=== PATIENT | male | born 1965 | race African-American/Black ===

== ENCOUNTER 2016-10-23 23:55 | Emergency (ER) | payer MEDICAID ==
[~2016-10-23] VITALS: Ht 180.3 cm; Wt 87.0 kg
[~2016-10-23 23:55] MED LIST: AMLO10TA80 PO; CALC667C4 PO; FOLI-43 PO; FURO80TA3 PO; GABA-529 PO; METO50TA5 PO; OMEP20CA10 PO; TERA2CAP53 PO
[2016-10-24 00:57] LABS: BASOPHILS % 0.5 % (0.0-2.0); EOSINOPHILS % 0.8 % (0.0-5.0); HEMATOCRIT. 35.5 % (42.0-52.0); HEMOGLOBIN. 12.4 g/dL (14.0-18.0); MEAN CORPUSCULAR HEMOGLOBIN 31.6 pg (28.0-32.0); MEAN CORPUSCULAR VOLUME 90.4 fL (80.0-94.0); MEAN PLATELET VOLUME 8.9 fl (7.4-10.4); MONOCYTES % 4.2 % (2.0-8.0); NEUTROPHILS % 83.5 % (40.0-76.0); PLATELET 153 x1000/uL (130-400); RED BLOOD CELL COUNT 3.93 mill/uL (4.7-6.1); RED CELL DISTRIBUTION WIDTH 13.4 % (11.6-14.6)
[2016-10-24 04:15] VITALS: BP 158/92
== END 2016-10-24 04:31 | disposition home or self-care (01) ==
LOC: ER 10-24 00:48
DX: E11.649 Type 2 diabetes mellitus with hypoglycemia without coma (principal); T38.3X5A Adverse effect of insulin and oral hypoglycemic [antidiabetic] drugs, initial encounter; I10 Essential (primary) hypertension; N28.9 Disorder of kidney and ureter, unspecified; Y92.9 Unspecified place or not applicable
CPT/HCPCS: 36415; 80048; 82962; 85025; 99284; Z7610

== ENCOUNTER 2017-08-23 13:46 | Inpatient (IN) | payer MEDICAID ==
[~2017-08-23] VITALS: Ht 177.8 cm; Wt 86.7 kg
[2017-08-23] VITALS (24 sets, daily range): BP systolic 120–177; BP diastolic 77–102
[~2017-08-23 13:46] MED LIST changes: +METO-539 PO; -METO50TA5 PO; +TERA2CAP4 PO; -TERA2CAP53 PO
[2017-08-23] MEDS ORDERED: SUCCINYLCHOLINE CHLORIDE 200MG/10ML VIAL IV ONE ×2 (14:02→16:00)
[2017-08-23] MEDS ORDERED: ETOMIDATE 2MG/ML 10ML VIAL IV ONE ×2 (14:02→16:00)
[2017-08-23] MEDS ORDERED: ACETAMINOPHEN 650MG SUPP PR STA (14:04)
[2017-08-23] MEDS ORDERED: SODIUM CHLORIDE 0.9% 1,000 ML IV ONE ×2 (14:04→15:31)
[2017-08-23] MEDS ORDERED: PIPERACILLIN/TAZ 3.375G PREMIX 50 ML IV ONE (14:15)
[2017-08-23] MEDS ORDERED: VANCOMYCIN 1 G PREMIX 200 ML IV ONE (14:15)
[2017-08-23 14:33] LABS: BG BASE EXCESS -2.9 mmol/L (-2.0-2.0); BG CARBOXYHEMOGLOBIN 0.9 % (0.5-1.5); BG DEOXYHEMOGLOBIN 4.6 % (0.0-5.0); BG FRACTION INSPIRED OXYGEN 21; BG HCO3 ACT 19.1 mmol/L (22.0-26.0); BG METHEMOGLOBIN 0.3 % (0.0-1.5); BG OXYGEN SATURATION 95.3 % (92.0-98.5); BG OXYHEMOGLOBIN 94.2 % (94.0-97.0); BG PCO2 25.4 mmHg (35.0-45.0); BG PH 7.494 (7.350-7.450); BG SAMPLE SITE RIGHT BRACHIAL; BG TOTAL HEMOGLOBIN 11.1 g/dL (12.0-18.0); BG VENT MODE ROOM AIR
[2017-08-23] MEDS ORDERED: LORAZEPAM 2MG/ML CPJ IM ONE (15:00)
[2017-08-23] MEDS ORDERED: LORAZEPAM 2MG/ML CPJ IV ONE (15:00)
[2017-08-23 15:20] LABS: CHLORIDE 85 mEq/L (98-107)
[2017-08-23 15:24] LABS: ETHANOL BLOOD < 10 mg/dL
[2017-08-23 15:25] LABS: D-DIMER 1.19 mg/L FEU (<0.50); PHOSPHORUS 2.8 mg/dL (2.5-4.9); PROTHROMBIN TIME 10.3 sec (9.4-11.6)
[2017-08-23 15:26] LABS: HEMATOCRIT. 32.5 % (42.0-52.0); HEMOGLOBIN. 11.1 g/dL (14.0-18.0); MEAN CORPUSCULAR HEMOGLOBIN 32.1 pg (28.0-32.0); MEAN CORPUSCULAR VOLUME 94.2 fL (80.0-94.0); PLATELET 204 x1000/uL (130-400); RED BLOOD CELL COUNT 3.45 mill/uL (4.7-6.1); RED CELL DISTRIBUTION WIDTH 13.5 % (11.6-14.6)
[2017-08-23 15:29] LABS: BETA HYDROXYBUTYRATE 1.7 mMol/L (0.0-0.3)
[2017-08-23] MEDS: INSULIN REGULAR (DRIP) 100 UNITS in SODIUM CHLORIDE 0.9% 99 ML IV SCH ×2 (15:45→18:26)
[2017-08-23] MEDS ORDERED: PROPOFOL 10MG/ML 100ML 100 ML IV ONE (16:00)
[2017-08-23 16:02] LABS: PLATELET ESTIMATE NORMAL
[2017-08-23] MEDS ORDERED: IPRATROPIUM/ALBUTEROL 0.5-3(2.5)MG/3ML NEB INH PRN (17:15)
[2017-08-23] MEDS ORDERED: PIPERACILLIN/TAZ 3.375G PREMIX 50 ML IV SCH (17:15)
[2017-08-23] MEDS ORDERED: ACETAMINOPHEN 650MG SUPP PR PRN (17:15)
[2017-08-23] MEDS ORDERED: INSULIN REGULAR (DRIP) 100 UNITS in SODIUM CHLORIDE 0.9% 100 ML IV SCH ×2 (17:15→20:00)
[2017-08-23] MEDS ORDERED: ONDANSETRON HCL 4MG/2ML VIAL IV PRN (17:15)
[2017-08-23 17:41] LABS: AMMONIA 41 uMol/L (<32)
[2017-08-23 17:45] LABS: CLARITY URINE CLEAR (CLEAR); COLOR URINE YELLOW (YELLOW); KETONES URINE TRACE (NEGATIVE); LEUKOCYTE ESTERASE URINE NEGATIVE (NEGATIVE); NITRITE URINE NEGATIVE (NEGATIVE); OCCULT BLOOD URINE 1+ (NEGATIVE); PH URINE >=9.0 (4.5-8.0); PROTEIN URINE 4+ (NEGATIVE); SPECIFIC GRAVITY URINE 1.017 (1.005-1.030); UROBILINOGEN URINE 0.2 E.U./dL (0.2-1.0)
[2017-08-23 18:01] LABS: *AMPHETAMINES SCREEN URINE NEGATIVE (NEGATIVE); *BARBITURATES SCREEN URINE NEGATIVE (NEGATIVE); *BENZODIAZEPINES SCREEN URINE NEGATIVE (NEGATIVE); *COCAINE SCREEN URINE NEGATIVE (NEGATIVE)
[2017-08-23 18:02] LABS: CANNABINOID URINE SCREEN NEGATIVE (NEGATIVE); METHADONE URINE SCREEN NEGATIVE (NEGATIVE); OPIATES URINE SCREEN NEGATIVE (NEGATIVE); PHENCYCLIDINE URINE SCREEN NEGATIVE (NEGATIVE)
[2017-08-23] MEDS ORDERED: DEXTROSE 50% WATER 50ML SYRINGE IV PRN ×2 (18:30)
[2017-08-23] MEDS: BLOOD SUGAR DIAGNOSTIC STRIP TEST SCH ×5 (18:33→22:48)
[2017-08-23] MEDS: SODIUM CHLORIDE 0.9% 1,000 ML IV SCH (18:34)
[2017-08-23 18:47] LABS: BG BASE EXCESS -1.4 mmol/L (-2.0-2.0); BG CARBOXYHEMOGLOBIN 0.2 % (0.5-1.5); BG FRACTION INSPIRED OXYGEN 100; BG HCO3 ACT 23.8 mmol/L (22.0-26.0); BG METHEMOGLOBIN 0.5 % (0.0-1.5); BG OXYHEMOGLOBIN 98.3 % (94.0-97.0); BG PCO2 42.1 mmHg (35.0-45.0); BG PH 7.371 (7.350-7.450); BG PO2 177.3 mmHg (75.0-100.0); BG SAMPLE SITE RIGHT RADIAL; BG TIDAL VOLUME(mL) 500 mL; BG VENT MODE VENT - A/C; BG VENT RATE 12 set
[2017-08-23] MEDS ORDERED: VANCOMYCIN 1 G PREMIX 200 ML IV NR (20:00)
[2017-08-23] MEDS: PROPOFOL 10MG/ML 100ML 100 ML IV PRN ×2 (20:26→22:48)
[2017-08-23] MEDS: PIPERACILLIN/TAZ 2.25G PREMIX 50 ML IV SCH (22:54)
[2017-08-24] VITALS (63 sets, daily range): BP systolic 110–178; BP diastolic 72–98
[2017-08-24 00:01] LABS: CREATINE KINASE MB FRACTION 3.8 ng/mL (0.5-3.6)
[2017-08-24] MEDS: BLOOD SUGAR DIAGNOSTIC STRIP TEST SCH ×12 (00:04→20:53)
[2017-08-24 05:52] LABS: BASOPHILS % 0.4 % (0.0-2.0); EOSINOPHILS % 0.1 % (0.0-5.0); HEMATOCRIT. 26.9 % (42.0-52.0); HEMOGLOBIN. 9.5 g/dL (14.0-18.0); LYMPHOCYTES % 11.6 % (20.0-50.0); MEAN CORPUSCULAR HEMOGLOBIN 31.9 pg (28.0-32.0); MEAN CORPUSCULAR VOLUME 89.9 fL (80.0-94.0); MEAN PLATELET VOLUME 8.9 fl (7.4-10.4); MONOCYTES % 6.9 % (2.0-8.0); PLATELET 206 x1000/uL (130-400); RED BLOOD CELL COUNT 2.99 mill/uL (4.7-6.1); RED CELL DISTRIBUTION WIDTH 13.2 % (11.6-14.6)
[2017-08-24 06:00] LABS: CHLORIDE 94 mEq/L (98-107)
[2017-08-24] MEDS: PIPERACILLIN/TAZ 2.25G PREMIX 50 ML IV SCH ×2 (06:00→17:12)
[2017-08-24] MEDS: PROPOFOL 10MG/ML 100ML 100 ML IV PRN ×2 (06:01→10:17)
[2017-08-24 06:09] LABS: HDL CHOLESTEROL 34 mg/dL (40-59)
[2017-08-24 06:11] LABS: LDL CHOLESTEROL 38 mg/dL (5-100)
[2017-08-24 06:12] LABS: CREATINE KINASE 283 IU/L (39-308)
[2017-08-24 06:17] LABS: CREATINE KINASE MB FRACTION 3.2 ng/mL (0.5-3.6)
[2017-08-24] MEDS ORDERED: DEXTROSE 50% WATER 50ML SYRINGE IV PRN (08:45)
[2017-08-24] MEDS ORDERED: IPRATROPIUM/ALBUTEROL 0.5-3(2.5)MG/3ML NEB HHN PRN (08:45)
[2017-08-24] MEDS ORDERED: BLOOD SUGAR DIAGNOSTIC STRIP TEST SCH (09:00)
[2017-08-24] MEDS ORDERED: PANTOPRAZOLE SODIUM 40 MG/VIAL IV NR (09:30)
[2017-08-24] MEDS: ENOXAPARIN 30MG/0.3ML SYR SUBCUT SCH (10:16)
[2017-08-24] MEDS: INSULIN LISPRO 100 UNITS/ML SUBCUT SCH ×3 (11:20→20:56)
[2017-08-24 12:44] LABS: BG BASE EXCESS -1.3 mmol/L (-2.0-2.0); BG CARBOXYHEMOGLOBIN 0.3 % (0.5-1.5); BG DEOXYHEMOGLOBIN 1.2 % (0.0-5.0); BG FRACTION INSPIRED OXYGEN 50; BG HCO3 ACT 22.5 mmol/L (22.0-26.0); BG METHEMOGLOBIN 0.4 % (0.0-1.5); BG OXYGEN SATURATION 98.8 % (92.0-98.5); BG OXYHEMOGLOBIN 98.1 % (94.0-97.0); BG PCO2 34.5 mmHg (35.0-45.0); BG PH 7.433 (7.350-7.450); BG PO2 178.5 mmHg (75.0-100.0); BG PRESSURE SUPPORT 8; BG SAMPLE SITE RIGHT BRACHIAL; BG VENT MODE VENT - CPAP
[2017-08-24] MEDS: IPRATROPIUM/ALBUTEROL 0.5-3(2.5)MG/3ML NEB HHN SCH ×2 (13:20→20:22)
[2017-08-24] MEDS: SODIUM CHLORIDE 0.9% 1,000 ML IV SCH (14:24)
[2017-08-24] MEDS: AMLODIPINE 10MG TABLET PO SCH (14:24)
[2017-08-24 16:24] LABS: AMMONIA 18 uMol/L (<32)
[2017-08-24 16:30] LABS: T4 FREE 1.43 ng/dL (0.76-1.46)
[2017-08-24 16:42] LABS: FOLIC ACID (FOLATE) SERUM > 20.00 ng/mL (>5.38)
[2017-08-24 16:50] LABS: VITAMIN B12 SERUM 1121 pg/mL (211-911)
[2017-08-24] MEDS: CALCIUM ACETATE 667MG CAPSULE PO SCH (17:11)
[2017-08-24] MEDS: GABAPENTIN 100MG CAPSULE PO SCH (20:29)
[2017-08-24] MEDS: DOXAZOSIN MESYLATE 2MG TABLET PO SCH (20:29)
[2017-08-25] VITALS (44 sets, daily range): BP systolic 113–165; BP diastolic 63–94
[2017-08-25] MEDS: PIPERACILLIN/TAZ 2.25G PREMIX 50 ML IV SCH ×4 (00:20→23:07)
[2017-08-25] MEDS: IPRATROPIUM/ALBUTEROL 0.5-3(2.5)MG/3ML NEB HHN SCH ×4 (01:40→21:06)
[2017-08-25] MEDS: BLOOD SUGAR DIAGNOSTIC STRIP TEST SCH ×3 (06:01→21:29)
[2017-08-25] MEDS: CALCIUM ACETATE 667MG CAPSULE PO SCH ×3 (06:02→18:15)
[2017-08-25] MEDS: INSULIN LISPRO 100 UNITS/ML SUBCUT SCH ×4 (06:06→21:29)
[2017-08-25 06:14] LABS: BASOPHILS % 0.6 % (0.0-2.0); EOSINOPHILS % 1.3 % (0.0-5.0); HEMATOCRIT. 27.2 % (42.0-52.0); HEMOGLOBIN. 9.4 g/dL (14.0-18.0); LYMPHOCYTES % 15.9 % (20.0-50.0); MEAN CORPUSCULAR HEMOGLOBIN 31.8 pg (28.0-32.0); MEAN CORPUSCULAR VOLUME 91.9 fL (80.0-94.0); MEAN PLATELET VOLUME 8.7 fl (7.4-10.4); MONOCYTES % 6.5 % (2.0-8.0); NEUTROPHILS % 75.7 % (40.0-76.0); PLATELET 183 x1000/uL (130-400); RED BLOOD CELL COUNT 2.97 mill/uL (4.7-6.1); RED CELL DISTRIBUTION WIDTH 13.6 % (11.6-14.6)
[2017-08-25 06:26] LABS: PHOSPHORUS 5.9 mg/dL (2.5-4.9)
[2017-08-25] MEDS: AMLODIPINE 10MG TABLET PO SCH (09:08)
[2017-08-25] MEDS: PANTOPRAZOLE SODIUM 40 MG/VIAL IV SCH (09:08)
[2017-08-25] MEDS: METOPROLOL TARTRATE 50MG TABLET PO SCH (09:08)
[2017-08-25] MEDS: FUROSEMIDE 80MG TABLET PO SCH (09:08)
[2017-08-25] MEDS: FOLIC ACID 1MG TABLET PO SCH (09:09)
[2017-08-25] MEDS: ENOXAPARIN 30MG/0.3ML SYR SUBCUT SCH (09:25)
[2017-08-25] MEDS ORDERED: DEXTROSE 50% WATER 50ML SYRINGE IV PRN ×2 (11:45→12:15)
[2017-08-25] MEDS ORDERED: BLOOD SUGAR DIAGNOSTIC STRIP TEST SCH (12:00)
[2017-08-25] MEDS ORDERED: INSULIN LISPRO 100 UNITS/ML SUBCUT SCH (12:00)
[2017-08-25] MEDS: SODIUM CHLORIDE 0.9% 1,000 ML IV SCH (12:45)
[2017-08-25] MEDS ORDERED: INSULIN LISPRO 100 UNITS/ML SUBCUT NR (12:45)
[2017-08-25 12:53] LABS: CREATINE KINASE MB FRACTION 2.1 ng/mL (0.5-3.6)
[2017-08-25] MEDS ORDERED: INSULIN GLARGINE UD 100 UNITS/ML SYR SUBCUT SCH ×2 (15:00→22:00)
[2017-08-25] MEDS: ATORVASTATIN CALCIUM 20MG TABLET PO SCH (21:01)
[2017-08-25] MEDS: DOXAZOSIN MESYLATE 2MG TABLET PO SCH (21:01)
[2017-08-25] MEDS: GABAPENTIN 100MG CAPSULE PO SCH (21:01)
[2017-08-26] VITALS (35 sets, daily range): BP systolic 135–178; BP diastolic 63–91
[2017-08-26] MEDS: IPRATROPIUM/ALBUTEROL 0.5-3(2.5)MG/3ML NEB HHN SCH ×3 (01:05→15:56)
[2017-08-26 06:01] LABS: BASOPHILS % 0.7 % (0.0-2.0); EOSINOPHILS % 3.8 % (0.0-5.0); HEMATOCRIT. 25.9 % (42.0-52.0); HEMOGLOBIN. 9.1 g/dL (14.0-18.0); LYMPHOCYTES % 22.8 % (20.0-50.0); MEAN CORPUSCULAR HEMOGLOBIN 32.2 pg (28.0-32.0); MEAN CORPUSCULAR VOLUME 91.8 fL (80.0-94.0); MEAN PLATELET VOLUME 8.6 fl (7.4-10.4); MONOCYTES % 9.1 % (2.0-8.0); NEUTROPHILS % 63.6 % (40.0-76.0); PLATELET 185 x1000/uL (130-400); RED BLOOD CELL COUNT 2.82 mill/uL (4.7-6.1); RED CELL DISTRIBUTION WIDTH 13.8 % (11.6-14.6)
[2017-08-26] MEDS: BLOOD SUGAR DIAGNOSTIC STRIP TEST SCH ×4 (06:08→21:28)
[2017-08-26 06:17] LABS: PHOSPHORUS 6.4 mg/dL (2.5-4.9)
[2017-08-26] MEDS: CALCIUM ACETATE 667MG CAPSULE PO SCH ×3 (06:19→18:53)
[2017-08-26] MEDS: PIPERACILLIN/TAZ 2.25G PREMIX 50 ML IV SCH (06:19)
[2017-08-26] MEDS: INSULIN LISPRO 100 UNITS/ML SUBCUT SCH ×7 (06:20→21:23)
[2017-08-26] MEDS: FOLIC ACID 1MG TABLET PO SCH (08:07)
[2017-08-26] MEDS: AMLODIPINE 10MG TABLET PO SCH (08:07)
[2017-08-26] MEDS: PANTOPRAZOLE SODIUM 40 MG/VIAL IV SCH (08:07)
[2017-08-26] MEDS: FUROSEMIDE 80MG TABLET PO SCH (08:07)
[2017-08-26] MEDS: METOPROLOL TARTRATE 50MG TABLET PO SCH (08:08)
[2017-08-26] MEDS: ENOXAPARIN 30MG/0.3ML SYR SUBCUT SCH (08:11)
[2017-08-26] MEDS ORDERED: INSULIN GLARGINE UD 100 UNITS/ML SYR SUBCUT SCH ×2 (10:00→22:00)
[2017-08-26] MEDS ORDERED: LEVOFLOXACIN 250MG TABLET PO SCH (11:00)
[2017-08-26] MEDS ORDERED: EPOETIN ALFA 4000UNITS/ML VIAL SUBCUT SCH (21:00)
[2017-08-26] MEDS: ATORVASTATIN CALCIUM 20MG TABLET PO SCH (21:17)
[2017-08-26] MEDS: DOXAZOSIN MESYLATE 2MG TABLET PO SCH (21:18)
[2017-08-26] MEDS: GABAPENTIN 100MG CAPSULE PO SCH (21:20)
[2017-08-27] VITALS (10 sets, daily range): BP systolic 128–159; BP diastolic 62–82
[2017-08-27] MEDS: IPRATROPIUM/ALBUTEROL 0.5-3(2.5)MG/3ML NEB HHN SCH ×4 (01:46→21:08)
[2017-08-27] MEDS: BLOOD SUGAR DIAGNOSTIC STRIP TEST SCH ×3 (06:02→18:01)
[2017-08-27] MEDS: INSULIN LISPRO 100 UNITS/ML SUBCUT SCH ×6 (06:02→18:15)
[2017-08-27] MEDS ORDERED: INSULIN LISPRO 100 UNITS/ML SUBCUT SCH (06:30)
[2017-08-27] MEDS ORDERED: OMEPRAZOLE 20MG CAPSULE EXTENDED RELEASE PO SCH (06:30)
[2017-08-27 07:36] LABS: BASOPHILS % 0.6 % (0.0-2.0); EOSINOPHILS % 4.5 % (0.0-5.0); HEMATOCRIT. 24.4 % (42.0-52.0); HEMOGLOBIN. 8.8 g/dL (14.0-18.0); LYMPHOCYTES % 24.9 % (20.0-50.0); MEAN CORPUSCULAR HEMOGLOBIN 32.9 pg (28.0-32.0); MEAN CORPUSCULAR VOLUME 91.7 fL (80.0-94.0); MEAN PLATELET VOLUME 8.3 fl (7.4-10.4); MONOCYTES % 8.9 % (2.0-8.0); NEUTROPHILS % 61.1 % (40.0-76.0); PLATELET 153 x1000/uL (130-400); RED BLOOD CELL COUNT 2.66 mill/uL (4.7-6.1); RED CELL DISTRIBUTION WIDTH 13.3 % (11.6-14.6)
[2017-08-27] MEDS: CALCIUM ACETATE 667MG CAPSULE PO SCH ×3 (08:40→18:15)
[2017-08-27] MEDS: FOLIC ACID 1MG TABLET PO SCH (08:40)
[2017-08-27] MEDS: ENOXAPARIN 30MG/0.3ML SYR SUBCUT SCH (08:40)
[2017-08-27] MEDS: AMLODIPINE 10MG TABLET PO SCH (08:41)
[2017-08-27] MEDS: FUROSEMIDE 80MG TABLET PO SCH (08:41)
[2017-08-27] MEDS: METOPROLOL TARTRATE 50MG TABLET PO SCH (08:41)
[2017-08-27 08:55] LABS: PHOSPHORUS 4.1 mg/dL (2.5-4.9)
[2017-08-27] MEDS ORDERED: INSULIN GLARGINE UD 100 UNITS/ML SYR SUBCUT SCH (10:00)
[2017-08-27] MEDS ORDERED: INSLIS SUBCUT ×2 (15:42)
[2017-08-27] MEDS ORDERED: FURO80TA3 PO (15:42)
[2017-08-27] MEDS ORDERED: ATOR20TA PO (15:42)
[2017-08-27] MEDS ORDERED: LEVO250T2 PO (15:42)
[2017-08-27] MEDS ORDERED: LANTUSUD SUBCUT ×2 (15:42)
[2017-08-27] MEDS ORDERED: EPOE40007 SUBCUT (15:42)
[2017-08-28] MEDS ORDERED: INSULIN LISPRO 100 UNITS/ML SUBCUT SCH (07:40)
== END 2017-08-27 21:20 | disposition home or self-care (01) | DRG 720 ==
LOC: ER 13:46 → MICUNO 16:02 → EDBEDREQSVC 16:04 → ENRESERV 16:06 → EDBEDREQ 16:07 → EDBEDREQTM 16:07 → MICUSO 08-25 20:15 → 7WST 08-26 20:18
PROVIDERS: ADMIT Internal Medicine; ATTEND Internal Medicine
PROC: 5A1935Z Respiratory Ventilation, Less than 24 Consecutive Hours (ICD-10-PCS; principal; 2017-08-23)
PROC: 0BH17EZ Insertion of Endotracheal Airway into Trachea, Via Natural or Artificial Opening (ICD-10-PCS; 2017-08-23)
PROC: 5A1D70Z Performance of Urinary Filtration, Intermittent, Less than 6 Hours Per Day (ICD-10-PCS; 2017-08-24)
PROC: 5A09357 Assistance with Respiratory Ventilation, Less than 24 Consecutive Hours, Continuous Positive Airway Pressure (ICD-10-PCS; 2017-08-25)
PROC: 5A1D70Z Performance of Urinary Filtration, Intermittent, Less than 6 Hours Per Day (ICD-10-PCS; 2017-08-25)
PROC: 4A00X4Z Measurement of Central Nervous Electrical Activity, External Approach (ICD-10-PCS; 2017-08-25)
PROC: 5A09357 Assistance with Respiratory Ventilation, Less than 24 Consecutive Hours, Continuous Positive Airway Pressure (ICD-10-PCS; 2017-08-26)
DX: A41.9 Sepsis, unspecified organism (principal); J96.00 Acute respiratory failure, unspecified whether with hypoxia or hypercapnia; J69.0 Pneumonitis due to inhalation of food and vomit; E13.00 Other specified diabetes mellitus with hyperosmolarity without nonketotic hyperglycemic-hyperosmolar coma (NKHHC); G92 Toxic encephalopathy; E72.20 Disorder of urea cycle metabolism, unspecified; J84.9 Interstitial pulmonary disease, unspecified; N25.81 Secondary hyperparathyroidism of renal origin; N18.6 End stage renal disease; H70.93 Unspecified mastoiditis, bilateral; D64.9 Anemia, unspecified; D72.829 Elevated white blood cell count, unspecified; E10.22 Type 1 diabetes mellitus with diabetic chronic kidney disease; E10.319 Type 1 diabetes mellitus with unspecified diabetic retinopathy without macular edema; E10.65 Type 1 diabetes mellitus with hyperglycemia; E66.9 Obesity, unspecified; E78.5 Hyperlipidemia, unspecified; I13.11 Hypertensive heart and chronic kidney disease without heart failure, with stage 5 chronic kidney disease, or end stage renal disease; E83.39 Other disorders of phosphorus metabolism; Z96.41 Presence of insulin pump (external) (internal); E10.42 Type 1 diabetes mellitus with diabetic polyneuropathy; K42.9 Umbilical hernia without obstruction or gangrene; I27.20 Pulmonary hypertension, unspecified; E87.0 Hyperosmolality and hypernatremia; G47.33 Obstructive sleep apnea (adult) (pediatric); R26.9 Unspecified abnormalities of gait and mobility; I67.82 Cerebral ischemia; Z79.4 Long term (current) use of insulin; Z86.73 Personal history of transient ischemic attack (TIA), and cerebral infarction without residual deficits; Z99.2 Dependence on renal dialysis; Z87.81 Personal history of (healed) traumatic fracture; Z68.27 Body mass index [BMI] 27.0-27.9, adult; Z79.899 Other long term (current) drug therapy
CPT/HCPCS: 31500; 36415; 36556; 36600; 51702; 70450; 70551; 71045; 80048; 80053; 80061; 80202; 80305; 81003; 82010; 82140; 82375; 82550; 82553; 82607; 82746; 82805; 82962; 83036; 83540; 83550; 83605; 83735; 83880; 84100; 84439; 84443; 84481; 84484; 85025; 85379; 85610; 87040; 87086; 92610; 93005; 93306; 93970; 94002; 94003; 94640; 96372; 96374; 96375; 97116; 97162; 99285; C9113; G0482; J0330; J0885; J1650; J1815; J2060; J2543; J2704; J3370; J3490; J7030; J7040; J7050; J7620

== ENCOUNTER 2017-10-21 16:05 | Inpatient (IN) | payer MEDICAID ==
[~2017-10-21] VITALS: Ht 177.8 cm; Wt 83.5 kg
[2017-10-21] VITALS (9 sets, daily range): BP systolic 124–165; BP diastolic 42–86
[~2017-10-21 16:05] MED LIST changes: +ATOR20TA PO; +EPOE40007 SUBCUT; +ETOMIDATE 2MG/ML 10ML VIAL IV ONE; +INSLIS SUBCUT; +LANTUSUD SUBCUT; +LEVO250T2 PO; +SUCCINYLCHOLINE CHLORIDE 200MG/10ML VIAL IV ONE
[2017-10-21] MEDS ORDERED: SODIUM POLYSTYRENE SULFONATE 15 G/60 ML BOT NG ONE (17:00)
[2017-10-21] MEDS ORDERED: SODIUM BICARBONATE 8.4% 1 MEQ/ML 50ML SYR IV ONE (17:00)
[2017-10-21] MEDS ORDERED: INSULIN REGULAR (HUMULIN R) 300UNITS/3ML IV NR (17:14)
[2017-10-21 17:17] LABS: BASOPHILS % 1.1 % (0.0-2.0); HEMATOCRIT. 35.6 % (42.0-52.0); HEMOGLOBIN. 11.4 g/dL (14.0-18.0); LYMPHOCYTES % 18.3 % (20.0-50.0); MEAN CORPUSCULAR HEMOGLOBIN 31.3 pg (28.0-32.0); MEAN CORPUSCULAR VOLUME 98.1 fL (80.0-94.0); MEAN PLATELET VOLUME 9.2 fl (7.4-10.4); MONOCYTES % 4.7 % (2.0-8.0); NEUTROPHILS % 74.9 % (40.0-76.0); PLATELET 203 x1000/uL (130-400); RED BLOOD CELL COUNT 3.63 mill/uL (4.7-6.1); RED CELL DISTRIBUTION WIDTH 13.7 % (11.6-14.6)
[2017-10-21 17:23] LABS: CHLORIDE 82 mEq/L (98-107)
[2017-10-21 17:27] LABS: ETHANOL BLOOD < 10 mg/dL
[2017-10-21] MEDS ORDERED: CALCIUM CHLORIDE 1,000 MG in DEXT 5% WATER 90 ML IV NR (17:30)
[2017-10-21] MEDS ORDERED: INSULIN REGULAR (DRIP) 100 UNITS in SODIUM CHLORIDE 0.9% 99 ML IV NR ×2 (17:30→17:45)
[2017-10-21 18:01] LABS: BG BASE EXCESS -7.8 mmol/L (-2.0-2.0); BG CARBOXYHEMOGLOBIN 0.7 % (0.5-1.5); BG DEOXYHEMOGLOBIN 21.2 % (0.0-5.0); BG FRACTION INSPIRED OXYGEN 100; BG METHEMOGLOBIN 0.3 % (0.0-1.5); BG OXYGEN SATURATION 78.6 % (92.0-98.5); BG OXYHEMOGLOBIN 77.8 % (94.0-97.0); BG PCO2 65.8 mmHg (35.0-45.0); BG PH 7.142 (7.350-7.450); BG PO2 55.5 mmHg (75.0-100.0); BG SAMPLE SITE RIGHT BRACHIAL; BG TOTAL HEMOGLOBIN 12.7 g/dL (12.0-18.0); BG VENT MODE MASK - NRB
[2017-10-21] MEDS ORDERED: INSULIN REGULAR (HUMULIN R) UD 100 UNITS/ML SYR IV ONE (18:15)
[2017-10-21] MEDS ORDERED: MAGNESIUM/ALUMINUM HYDROXIDE/SIMETHICONE 30ML UDC PO PRN (19:00)
[2017-10-21] MEDS ORDERED: NITROGLYCERIN 50MG PREMIX 250 ML IV ONE (19:00)
[2017-10-21] MEDS ORDERED: IPRATROPIUM/ALBUTEROL 0.5-3(2.5)MG/3ML NEB INH PRN (19:00)
[2017-10-21] MEDS ORDERED: NITROGLYCERIN OINT 1GM/INCH UDPKT TD ONE (19:00)
[2017-10-21] MEDS ORDERED: CLONIDINE 0.1MG TABLET PO PRN (19:00)
[2017-10-21] MEDS ORDERED: ACETAMINOPHEN 325MG TABLET PO PRN (19:00)
[2017-10-21] MEDS ORDERED: ENALAPRIL 2.5MG/2ML VIAL 2ML IV ONE (19:00)
[2017-10-21] MEDS ORDERED: GUAIFENESIN 200MG/10ML SUGAR FREE UDC PO PRN (19:00)
[2017-10-21] MEDS ORDERED: NITROGLYCERIN 0.4MG TABLET SL SL PRN (19:00)
[2017-10-21 20:30] LABS: CLARITY URINE CLEAR (CLEAR); COLOR URINE YELLOW (YELLOW); KETONES URINE 1+ (NEGATIVE); LEUKOCYTE ESTERASE URINE NEGATIVE (NEGATIVE); NITRITE URINE NEGATIVE (NEGATIVE); OCCULT BLOOD URINE 1+ (NEGATIVE); PH URINE 8.5 (4.5-8.0); PROTEIN URINE 4+ (NEGATIVE); SPECIFIC GRAVITY URINE 1.018 (1.005-1.030); UROBILINOGEN URINE 0.2 E.U./dL (0.2-1.0)
[2017-10-21 20:32] LABS: *AMPHETAMINES SCREEN URINE NEGATIVE (NEGATIVE); *BARBITURATES SCREEN URINE NEGATIVE (NEGATIVE); *BENZODIAZEPINES SCREEN URINE NEGATIVE (NEGATIVE); *COCAINE SCREEN URINE NEGATIVE (NEGATIVE); METHADONE URINE SCREEN NEGATIVE (NEGATIVE)
[2017-10-21 20:33] LABS: CANNABINOID URINE SCREEN NEGATIVE (NEGATIVE); OPIATES URINE SCREEN NEGATIVE (NEGATIVE); PHENCYCLIDINE URINE SCREEN NEGATIVE (NEGATIVE)
[2017-10-21] MEDS ORDERED: TRAMADOL 50MG TABLET PO PRN (20:40)
[2017-10-21] MEDS ORDERED: SUCCINYLCHOLINE CHLORIDE 200MG/10ML VIAL IV ONE (20:45)
[2017-10-21] MEDS ORDERED: ETOMIDATE 2MG/ML 10ML VIAL IV ONE (20:45)
[2017-10-21] MEDS ORDERED: PROPOFOL 10MG/ML 100ML 100 ML IV PRN ×2 (20:45→22:55)
[2017-10-21] MEDS ORDERED: ZOLPIDEM TARTRATE 5MG TABLET PO PRN (21:00)
[2017-10-21] MEDS ORDERED: NA PHOS,M-B/NA PHOS,DI-BA ENEMA 118ML PR PRN (21:00)
[2017-10-21 22:06] LABS: BG BASE EXCESS -7.6 mmol/L (-2.0-2.0); BG CARBOXYHEMOGLOBIN 0.1 % (0.5-1.5); BG DEOXYHEMOGLOBIN 4.9 % (0.0-5.0); BG FRACTION INSPIRED OXYGEN 100; BG HCO3 ACT 18.3 mmol/L (22.0-26.0); BG METHEMOGLOBIN 0.3 % (0.0-1.5); BG OXYGEN SATURATION 95.1 % (92.0-98.5); BG OXYHEMOGLOBIN 94.7 % (94.0-97.0); BG PCO2 38.6 mmHg (35.0-45.0); BG PH 7.294 (7.350-7.450); BG PO2 84.1 mmHg (75.0-100.0); BG SAMPLE SITE RIGHT BRACHIAL; BG TIDAL VOLUME(mL) 600 mL; BG TOTAL HEMOGLOBIN 12.1 g/dL (12.0-18.0); BG VENT MODE VENT - A/C; BG VENT RATE 14 set
[2017-10-21] MEDS ORDERED: ONDANSETRON HCL 4MG/2ML VIAL IV PRN (22:30)
[2017-10-21] MEDS ORDERED: IPRATROPIUM/ALBUTEROL 0.5-3(2.5)MG/3ML NEB HHN PRN (22:45)
[2017-10-21] MEDS ORDERED: MIDAZOLAM HCL 100 MG in DEXT 5% WATER 80 ML IV PRN (23:15)
[2017-10-21 23:39] LABS: BETA HYDROXYBUTYRATE 0.2 mMol/L (0.0-0.3)
[2017-10-22] VITALS (86 sets, daily range): BP systolic 54–214; BP diastolic 20–128
[2017-10-22] MEDS: FENTANYL CITRATE/PF 500 MCG in SODIUM CHLORIDE 0.9% 40 ML IV PRN ×2 (00:22→22:50)
[2017-10-22] MEDS ORDERED: INSULIN REGULAR (DRIP) 100 UNITS in SODIUM CHLORIDE 0.9% 99 ML IV PRN (00:45)
[2017-10-22] MEDS ORDERED: VANCOMYCIN 1 G PREMIX 200 ML IV SCH (01:00)
[2017-10-22] MEDS: IPRATROPIUM/ALBUTEROL 0.5-3(2.5)MG/3ML NEB HHN SCH ×6 (01:28→20:47)
[2017-10-22] MEDS: PIPERACILLIN/TAZ 2.25G PREMIX 50 ML IV SCH ×3 (03:21→19:37)
[2017-10-22 05:44] LABS: HEMATOCRIT. 34.9 % (42.0-52.0); HEMOGLOBIN. 11.9 g/dL (14.0-18.0); MEAN CORPUSCULAR HEMOGLOBIN 30.8 pg (28.0-32.0); MEAN PLATELET VOLUME 8.3 fl (7.4-10.4); PLATELET 220 x1000/uL (130-400); RED BLOOD CELL COUNT 3.88 mill/uL (4.7-6.1); RED CELL DISTRIBUTION WIDTH 14.1 % (11.6-14.6)
[2017-10-22 05:50] LABS: CHLORIDE 96 mEq/L (98-107)
[2017-10-22 05:59] LABS: PHOSPHORUS 2.6 mg/dL (2.5-4.9)
[2017-10-22 07:04] LABS: PLATELET ESTIMATE NORMAL
[2017-10-22 07:39] LABS: BG BASE EXCESS 6.7 mmol/L (-2.0-2.0); BG CARBOXYHEMOGLOBIN 0.3 % (0.5-1.5); BG DEOXYHEMOGLOBIN 0.6 % (0.0-5.0); BG FRACTION INSPIRED OXYGEN 60; BG HCO3 ACT 31.5 mmol/L (22.0-26.0); BG METHEMOGLOBIN 0.3 % (0.0-1.5); BG OXYGEN SATURATION 99.4 % (92.0-98.5); BG OXYHEMOGLOBIN 98.8 % (94.0-97.0); BG PCO2 45.8 mmHg (35.0-45.0); BG PH 7.455 (7.350-7.450); BG PO2 227.9 mmHg (75.0-100.0); BG SAMPLE SITE RIGHT BRACHIAL; BG TIDAL VOLUME(mL) 500 mL; BG TOTAL HEMOGLOBIN 12.6 g/dL (12.0-18.0); BG VENT MODE VENT - A/C; BG VENT RATE 14 set
[2017-10-22] MEDS ORDERED: BLOOD SUGAR DIAGNOSTIC STRIP TEST SCH (07:50)
[2017-10-22] MEDS: DEXTROSE 50% WATER 50ML SYRINGE IV PRN (08:03)
[2017-10-22] MEDS: SEVELAMER CARBONATE 800 MG TABLET PO SCH ×3 (08:20→17:47)
[2017-10-22] MEDS: INSULIN LISPRO 100 UNITS/ML SUBCUT SCH ×3 (08:20→17:49)
[2017-10-22] MEDS ORDERED: LIDOCAINE HCL 1% 20ML VIAL (Pyxis) INJ ONE (08:36)
[2017-10-22] MEDS ORDERED: FAMOTIDINE 20MG TABLET PO SCH (09:00)
[2017-10-22] MEDS ORDERED: INSULIN NPH (HUMULIN-N) 100 UNITS/ML 3ML VIAL SUBCUT NR (09:00)
[2017-10-22] MEDS ORDERED: ASPIRIN 325MG EC TABLET PO SCH (09:00)
[2017-10-22] MEDS ORDERED: HYDRALAZINE 20MG/ML VIAL IV PRN (09:30)
[2017-10-22] MEDS: METOPROLOL TARTRATE 25MG TABLET PO SCH ×2 (10:00→21:13)
[2017-10-22] MEDS: BLOOD SUGAR DIAGNOSTIC STRIP TEST SCH ×2 (11:59→17:06)
[2017-10-22] MEDS ORDERED: INS NPH/REG HM 70-30 100 UNITS/ML 10ML VIAL (HUMULIN 70-30) SUBCUT SCH (12:00)
[2017-10-22 14:42] LABS: PHOSPHORUS 3.6 mg/dL (2.5-4.9)
[2017-10-22] MEDS: FOLIC ACID/VITAMIN B COMP W-C TABLET PO SCH (15:43)
[2017-10-22] MEDS: AMLODIPINE 10MG TABLET PO SCH ×2 (15:44→16:48)
[2017-10-22] MEDS: NITROGLYCERIN 0.4MG/HR PATCH TOP SCH (15:44)
[2017-10-22] MEDS: ENOXAPARIN 30MG/0.3ML SYR SUBCUT SCH (15:45)
[2017-10-22] MEDS ORDERED: LIDOCAINE HCL/PF 1% 10 MG/ML 30ML VIAL INFIL NR (16:00)
[2017-10-22] MEDS: PROPOFOL 10MG/ML 100ML 100 ML IV PRN ×3 (16:13→22:50)
[2017-10-22] MEDS ORDERED: PIPERACILLIN/TAZ 2.25G PREMIX 50 ML IV SCH (17:00)
[2017-10-22] MEDS ORDERED: VANCOMYCIN 1 G PREMIX 200 ML IV NR (17:00)
[2017-10-22] MEDS: ATORVASTATIN CALCIUM 10MG TABLET PO SCH (21:13)
[2017-10-22] MEDS ORDERED: INSULIN GLARGINE UD 100 UNITS/ML SYR SUBCUT SCH (22:00)
[2017-10-23] VITALS (39 sets, daily range): BP systolic 99–169; BP diastolic 47–86
[2017-10-23] MEDS: IPRATROPIUM/ALBUTEROL 0.5-3(2.5)MG/3ML NEB HHN SCH ×6 (00:17→20:53)
[2017-10-23] MEDS: INSULIN LISPRO 100 UNITS/ML SUBCUT SCH ×5 (00:47→23:34)
[2017-10-23] MEDS: BLOOD SUGAR DIAGNOSTIC STRIP TEST SCH ×5 (00:53→23:29)
[2017-10-23] MEDS: PIPERACILLIN/TAZ 2.25G PREMIX 50 ML IV SCH ×3 (02:45→17:31)
[2017-10-23] MEDS ORDERED: PROPOFOL 10MG/ML 100ML 100 ML IV PRN (03:15)
[2017-10-23 05:54] LABS: BASOPHILS % 0.4 % (0.0-2.0); EOSINOPHILS % 0.3 % (0.0-5.0); HEMATOCRIT. 28.4 % (42.0-52.0); HEMOGLOBIN. 9.6 g/dL (14.0-18.0); LYMPHOCYTES % 9.8 % (20.0-50.0); MEAN CORPUSCULAR HEMOGLOBIN 31.2 pg (28.0-32.0); MEAN CORPUSCULAR VOLUME 92.6 fL (80.0-94.0); MEAN PLATELET VOLUME 9.1 fl (7.4-10.4); MONOCYTES % 7.9 % (2.0-8.0); NEUTROPHILS % 81.6 % (40.0-76.0); PLATELET 156 x1000/uL (130-400); RED BLOOD CELL COUNT 3.06 mill/uL (4.7-6.1); RED CELL DISTRIBUTION WIDTH 14.7 % (11.6-14.6)
[2017-10-23] MEDS ORDERED: SKIN ADHESIVE 0.7 GM EA TOP ONE (06:02)
[2017-10-23] MEDS ORDERED: BACITRACIN ZINC 15GM TUBE TOP ONE (06:03)
[2017-10-23] MEDS ORDERED: BUPIVACAINE HCL 0.5% (5MG/ML) 50ML ONE (06:03)
[2017-10-23] MEDS ORDERED: MIDAZOLAM HCL 2 MG/2 ML VIAL ONE ×2 (06:37→06:44)
[2017-10-23] MEDS ORDERED: PROPOFOL 200MG/20ML VIAL IV ONE ×2 (06:37→06:43)
[2017-10-23] MEDS ORDERED: FENTANYL CITRATE/PF 50MCG/ML 2ML VIAL ONE ×2 (06:37→06:43)
[2017-10-23] MEDS ORDERED: ONDANSETRON HCL 4MG/2ML VIAL ONE (06:39)
[2017-10-23] MEDS ORDERED: DEXAMETHASONE 4MG/ML 1ML VIAL ONE (06:39)
[2017-10-23 06:41] LABS: CHLORIDE 102 mEq/L (98-107)
[2017-10-23] MEDS ORDERED: ONDANSETRON HCL 4MG/2ML VIAL IV PRN (07:15)
[2017-10-23] MEDS ORDERED: LABETALOL 5MG/ML SYR 20 MG/4 ML SYRINGE IV PRN (07:15)
[2017-10-23] MEDS ORDERED: HYDROMORPHONE HCL/PF 2MG/ML CPJ IV PRN (07:15)
[2017-10-23] MEDS ORDERED: MEPERIDINE HCL/PF 25MG/ML CPJ IV PRN (07:15)
[2017-10-23] MEDS ORDERED: CEFAZOLIN SODIUM 1000MG/VIAL ONE (07:17)
[2017-10-23] MEDS ORDERED: SODIUM CHLORIDE 0.9% 10ML VIAL ONE (07:17)
[2017-10-23 08:15] LABS: BG BASE EXCESS 0.8 mmol/L (-2.0-2.0); BG CARBOXYHEMOGLOBIN 0.2 % (0.5-1.5); BG DEOXYHEMOGLOBIN 1.5 % (0.0-5.0); BG FRACTION INSPIRED OXYGEN 40; BG HCO3 ACT 26.2 mmol/L (22.0-26.0); BG METHEMOGLOBIN 0.5 % (0.0-1.5); BG OXYGEN SATURATION 98.5 % (92.0-98.5); BG OXYHEMOGLOBIN 97.8 % (94.0-97.0); BG PCO2 45.2 mmHg (35.0-45.0); BG PH 7.381 (7.350-7.450); BG SAMPLE SITE RIGHT RADIAL; BG TIDAL VOLUME(mL) 500 mL; BG TOTAL HEMOGLOBIN 10.8 g/dL (12.0-18.0); BG VENT MODE VENT - A/C; BG VENT RATE 12 set
[2017-10-23 08:47] LABS: PHOSPHORUS 4.4 mg/dL (2.5-4.9)
[2017-10-23] MEDS: FOLIC ACID/VITAMIN B COMP W-C TABLET PO SCH (09:22)
[2017-10-23] MEDS: FAMOTIDINE 20MG TABLET PO SCH (09:22)
[2017-10-23] MEDS: AMLODIPINE 10MG TABLET PO SCH (09:22)
[2017-10-23] MEDS: METOPROLOL TARTRATE 25MG TABLET PO SCH ×2 (09:22→20:36)
[2017-10-23] MEDS: SEVELAMER CARBONATE 800 MG TABLET PO SCH ×3 (09:23→17:27)
[2017-10-23] MEDS: ENOXAPARIN 30MG/0.3ML SYR SUBCUT SCH (09:27)
[2017-10-23 09:39] LABS: COLOR URINE YELLOW (YELLOW); KETONES URINE NEGATIVE (NEGATIVE); LEUKOCYTE ESTERASE URINE NEGATIVE (NEGATIVE); NITRITE URINE NEGATIVE (NEGATIVE); OCCULT BLOOD URINE 3+ (NEGATIVE); PH URINE 7.5 (4.5-8.0); PROTEIN URINE 4+ (NEGATIVE); SPECIFIC GRAVITY URINE 1.034 (1.005-1.030); UROBILINOGEN URINE 0.2 E.U./dL (0.2-1.0)
[2017-10-23 09:41] LABS: CLARITY URINE CLEAR (CLEAR)
[2017-10-23] MEDS: NITROGLYCERIN 0.4MG/HR PATCH TOP SCH (09:58)
[2017-10-23] MEDS: ASPIRIN 325MG TABLET PO SCH (09:59)
[2017-10-23 10:18] LABS: CANNABINOID URINE SCREEN NEGATIVE (NEGATIVE); PHENCYCLIDINE URINE SCREEN NEGATIVE (NEGATIVE)
[2017-10-23 10:22] LABS: *AMPHETAMINES SCREEN URINE NEGATIVE (NEGATIVE); *COCAINE SCREEN URINE NEGATIVE (NEGATIVE)
[2017-10-23 10:26] LABS: *BARBITURATES SCREEN URINE NEGATIVE (NEGATIVE); *BENZODIAZEPINES SCREEN URINE PRESUMTIVE POSITIVE (NEGATIVE); OPIATES URINE SCREEN NEGATIVE (NEGATIVE)
[2017-10-23 10:28] LABS: METHADONE URINE SCREEN NEGATIVE (NEGATIVE)
[2017-10-23 11:09] LABS: BG BASE EXCESS 2.7 mmol/L (-2.0-2.0); BG CARBOXYHEMOGLOBIN 0.1 % (0.5-1.5); BG DEOXYHEMOGLOBIN 1.4 % (0.0-5.0); BG FRACTION INSPIRED OXYGEN 40; BG HCO3 ACT 27.9 mmol/L (22.0-26.0); BG METHEMOGLOBIN 0.6 % (0.0-1.5); BG OXYGEN SATURATION 98.6 % (92.0-98.5); BG OXYHEMOGLOBIN 97.9 % (94.0-97.0); BG PCO2 45.9 mmHg (35.0-45.0); BG PH 7.402 (7.350-7.450); BG PO2 141.9 mmHg (75.0-100.0); BG PRESSURE SUPPORT 8; BG SAMPLE SITE RIGHT RADIAL; BG TOTAL HEMOGLOBIN 11.5 g/dL (12.0-18.0); BG VENT MODE VENT - CPAP
[2017-10-23] MEDS: DEXTROSE 50% WATER 50ML SYRINGE IV PRN (11:45)
[2017-10-23] MEDS ORDERED: INSULIN NPH (HUMULIN-N) 100 UNITS/ML 3ML VIAL SUBCUT SCH ×2 (16:00→18:00)
[2017-10-23] MEDS: DOCUSATE SODIUM 100MG CAPSULE PO PRN (17:27)
[2017-10-23] MEDS: ATORVASTATIN CALCIUM 10MG TABLET PO SCH (20:36)
[2017-10-24] VITALS (35 sets, daily range): BP systolic 104–156; BP diastolic 42–85
[2017-10-24] MEDS: IPRATROPIUM/ALBUTEROL 0.5-3(2.5)MG/3ML NEB HHN SCH ×6 (00:15→21:06)
[2017-10-24] MEDS: PIPERACILLIN/TAZ 2.25G PREMIX 50 ML IV SCH ×3 (01:26→18:30)
[2017-10-24] MEDS: BLOOD SUGAR DIAGNOSTIC STRIP TEST SCH ×3 (05:49→18:30)
[2017-10-24] MEDS: INSULIN LISPRO 100 UNITS/ML SUBCUT SCH ×3 (05:49→18:48)
[2017-10-24 06:10] LABS: BASOPHILS % 0.1 % (0.0-2.0); EOSINOPHILS % 0.1 % (0.0-5.0); HEMATOCRIT. 27.6 % (42.0-52.0); HEMOGLOBIN. 9.1 g/dL (14.0-18.0); LYMPHOCYTES % 7.4 % (20.0-50.0); MEAN CORPUSCULAR HEMOGLOBIN 30.6 pg (28.0-32.0); MEAN CORPUSCULAR VOLUME 93.3 fL (80.0-94.0); MEAN PLATELET VOLUME 9.1 fl (7.4-10.4); MONOCYTES % 7.7 % (2.0-8.0); NEUTROPHILS % 84.7 % (40.0-76.0); PLATELET 157 x1000/uL (130-400); RED BLOOD CELL COUNT 2.96 mill/uL (4.7-6.1); RED CELL DISTRIBUTION WIDTH 15.1 % (11.6-14.6)
[2017-10-24 06:30] LABS: PHOSPHORUS 5.7 mg/dL (2.5-4.9)
[2017-10-24 07:53] LABS: BG CARBOXYHEMOGLOBIN 0.2 % (0.5-1.5); BG DEOXYHEMOGLOBIN 0.8 % (0.0-5.0); BG HCO3 ACT 27.9 mmol/L (22.0-26.0); BG METHEMOGLOBIN 0.4 % (0.0-1.5); BG OXYGEN SATURATION 99.2 % (92.0-98.5); BG OXYHEMOGLOBIN 98.6 % (94.0-97.0); BG PCO2 44.4 mmHg (35.0-45.0); BG PH 7.416 (7.350-7.450); BG PO2 190.3 mmHg (75.0-100.0); BG SAMPLE SITE RIGHT RADIAL; BG VENT MODE MASK - CPAP
[2017-10-24] MEDS: DOCUSATE SODIUM 100MG CAPSULE PO PRN (09:37)
[2017-10-24] MEDS: ASPIRIN 325MG TABLET PO SCH (09:37)
[2017-10-24] MEDS: METOPROLOL TARTRATE 25MG TABLET PO SCH ×2 (09:37→20:25)
[2017-10-24] MEDS: ENOXAPARIN 30MG/0.3ML SYR SUBCUT SCH (09:38)
[2017-10-24] MEDS: FAMOTIDINE 20MG TABLET PO SCH (09:38)
[2017-10-24] MEDS: AMLODIPINE 10MG TABLET PO SCH (09:38)
[2017-10-24] MEDS: SEVELAMER CARBONATE 800 MG TABLET PO SCH ×3 (09:54→18:30)
[2017-10-24] MEDS: FOLIC ACID/VITAMIN B COMP W-C TABLET PO SCH (09:55)
[2017-10-24] MEDS: NITROGLYCERIN 0.4MG/HR PATCH TOP SCH (14:39)
[2017-10-24] MEDS: ATORVASTATIN CALCIUM 10MG TABLET PO SCH (20:25)
[2017-10-24] MEDS ORDERED: VANCOMYCIN 500 MG PREMIX 100 ML IV SCH (21:00)
[2017-10-24] MEDS ORDERED: INSULIN NPH (HUMULIN-N) 100 UNITS/ML 3ML VIAL SUBCUT SCH (21:00)
[2017-10-24] MEDS ORDERED: INSULIN GLARGINE UD 100 UNITS/ML SYR SUBCUT SCH (22:00)
[2017-10-25] VITALS (21 sets, daily range): BP systolic 114–179; BP diastolic 50–114
[2017-10-25] MEDS: BLOOD SUGAR DIAGNOSTIC STRIP TEST SCH ×5 (00:49→23:59)
[2017-10-25] MEDS: IPRATROPIUM/ALBUTEROL 0.5-3(2.5)MG/3ML NEB HHN SCH ×6 (00:59→20:48)
[2017-10-25] MEDS: INSULIN LISPRO 100 UNITS/ML SUBCUT SCH ×4 (01:02→18:00)
[2017-10-25] MEDS: PIPERACILLIN/TAZ 2.25G PREMIX 50 ML IV SCH ×3 (02:03→18:40)
[2017-10-25 05:34] LABS: BASOPHILS % 0.6 % (0.0-2.0); EOSINOPHILS % 0.8 % (0.0-5.0); HEMATOCRIT. 27.6 % (42.0-52.0); HEMOGLOBIN. 9.2 g/dL (14.0-18.0); LYMPHOCYTES % 18.3 % (20.0-50.0); MEAN CORPUSCULAR HEMOGLOBIN 31.2 pg (28.0-32.0); MEAN CORPUSCULAR VOLUME 93.3 fL (80.0-94.0); MEAN PLATELET VOLUME 9.1 fl (7.4-10.4); MONOCYTES % 6.7 % (2.0-8.0); NEUTROPHILS % 73.6 % (40.0-76.0); PLATELET 159 x1000/uL (130-400); RED BLOOD CELL COUNT 2.96 mill/uL (4.7-6.1); RED CELL DISTRIBUTION WIDTH 14.7 % (11.6-14.6)
[2017-10-25] MEDS: DEXTROSE 50% WATER 50ML SYRINGE IV PRN ×2 (05:55→18:40)
[2017-10-25 05:56] LABS: PHOSPHORUS 3.9 mg/dL (2.5-4.9)
[2017-10-25] MEDS: NITROGLYCERIN 0.4MG/HR PATCH TOP SCH (09:00)
[2017-10-25] MEDS: SEVELAMER CARBONATE 800 MG TABLET PO SCH ×3 (09:09→18:39)
[2017-10-25] MEDS: FAMOTIDINE 20MG TABLET PO SCH (09:09)
[2017-10-25] MEDS: AMLODIPINE 10MG TABLET PO SCH (09:09)
[2017-10-25] MEDS: ENOXAPARIN 30MG/0.3ML SYR SUBCUT SCH (09:10)
[2017-10-25] MEDS: FOLIC ACID/VITAMIN B COMP W-C TABLET PO SCH (09:10)
[2017-10-25] MEDS: METOPROLOL TARTRATE 25MG TABLET PO SCH (09:10)
[2017-10-25] MEDS: ASPIRIN 325MG TABLET PO SCH (09:10)
[2017-10-25] MEDS ORDERED: INSULIN NPH (HUMULIN-N) 100 UNITS/ML 3ML VIAL SUBCUT SCH ×2 (11:00→21:00)
[2017-10-25] MEDS: ATORVASTATIN CALCIUM 10MG TABLET PO SCH (20:51)
[2017-10-25] MEDS: METOPROLOL TARTRATE 50MG TABLET PO SCH (20:51)
[2017-10-26] VITALS (15 sets, daily range): BP systolic 126–160; BP diastolic 59–79
[2017-10-26] MEDS: INSULIN LISPRO 100 UNITS/ML SUBCUT SCH ×5 (00:03→23:47)
[2017-10-26] MEDS: IPRATROPIUM/ALBUTEROL 0.5-3(2.5)MG/3ML NEB HHN SCH ×6 (00:32→20:33)
[2017-10-26] MEDS: PIPERACILLIN/TAZ 2.25G PREMIX 50 ML IV SCH ×3 (02:36→21:44)
[2017-10-26 06:08] LABS: BASOPHILS % 0.4 % (0.0-2.0); EOSINOPHILS % 2.3 % (0.0-5.0); HEMATOCRIT. 31.6 % (42.0-52.0); HEMOGLOBIN. 10.5 g/dL (14.0-18.0); LYMPHOCYTES % 25.5 % (20.0-50.0); MEAN CORPUSCULAR HEMOGLOBIN 30.9 pg (28.0-32.0); MEAN CORPUSCULAR VOLUME 92.9 fL (80.0-94.0); MEAN PLATELET VOLUME 8.8 fl (7.4-10.4); MONOCYTES % 8.1 % (2.0-8.0); NEUTROPHILS % 63.7 % (40.0-76.0); PLATELET 225 x1000/uL (130-400); RED BLOOD CELL COUNT 3.41 mill/uL (4.7-6.1); RED CELL DISTRIBUTION WIDTH 14.6 % (11.6-14.6)
[2017-10-26 06:19] LABS: PHOSPHORUS 5.9 mg/dL (2.5-4.9)
[2017-10-26] MEDS: BLOOD SUGAR DIAGNOSTIC STRIP TEST SCH ×4 (06:20→23:43)
[2017-10-26] MEDS: SEVELAMER CARBONATE 800 MG TABLET PO SCH ×3 (08:16→16:49)
[2017-10-26] MEDS: FOLIC ACID/VITAMIN B COMP W-C TABLET PO SCH (08:16)
[2017-10-26] MEDS: ASPIRIN 325MG TABLET PO SCH (08:16)
[2017-10-26] MEDS: AMLODIPINE 10MG TABLET PO SCH (08:16)
[2017-10-26] MEDS: METOPROLOL TARTRATE 50MG TABLET PO SCH ×2 (08:16→21:00)
[2017-10-26] MEDS: FAMOTIDINE 20MG TABLET PO SCH (08:16)
[2017-10-26] MEDS: ENOXAPARIN 30MG/0.3ML SYR SUBCUT SCH (08:17)
[2017-10-26] MEDS: NITROGLYCERIN 0.4MG/HR PATCH TOP SCH (09:45)
[2017-10-26] MEDS: INSULIN NPH (HUMULIN-N) 100 UNITS/ML 3ML VIAL SUBCUT SCH ×2 (10:47→21:10)
[2017-10-26] MEDS: LANTHANUM CARBONATE 500MG CHEW TABLET PO SCH (16:49)
[2017-10-26] MEDS: ATORVASTATIN CALCIUM 10MG TABLET PO SCH (21:08)
[2017-10-27] VITALS (15 sets, daily range): BP systolic 98–186; BP diastolic 64–92
[2017-10-27] MEDS: IPRATROPIUM/ALBUTEROL 0.5-3(2.5)MG/3ML NEB HHN SCH ×3 (00:47→09:21)
[2017-10-27] MEDS: PIPERACILLIN/TAZ 2.25G PREMIX 50 ML IV SCH (01:58)
[2017-10-27] MEDS: INSULIN LISPRO 100 UNITS/ML SUBCUT SCH ×4 (05:58→23:52)
[2017-10-27] MEDS: BLOOD SUGAR DIAGNOSTIC STRIP TEST SCH ×4 (05:58→23:52)
[2017-10-27 07:10] LABS: CHLORIDE 101 mEq/L (98-107)
[2017-10-27 07:16] LABS: PHOSPHORUS 4.7 mg/dL (2.5-4.9)
[2017-10-27 07:24] LABS: BASOPHILS % 0.3 % (0.0-2.0); EOSINOPHILS % 2.9 % (0.0-5.0); LYMPHOCYTES % 20.4 % (20.0-50.0); MEAN CORPUSCULAR HEMOGLOBIN 32.2 pg (28.0-32.0); MEAN CORPUSCULAR VOLUME 92.2 fL (80.0-94.0); MONOCYTES % 9.6 % (2.0-8.0); NEUTROPHILS % 66.8 % (40.0-76.0); PLATELET 173 x1000/uL (130-400); RED BLOOD CELL COUNT 2.78 mill/uL (4.7-6.1); RED CELL DISTRIBUTION WIDTH 14.4 % (11.6-14.6)
[2017-10-27] MEDS: DOCUSATE SODIUM 100MG CAPSULE PO PRN (08:23)
[2017-10-27] MEDS: FAMOTIDINE 20MG TABLET PO SCH (08:23)
[2017-10-27] MEDS: LANTHANUM CARBONATE 500MG CHEW TABLET PO SCH ×3 (08:23→17:39)
[2017-10-27] MEDS: FOLIC ACID/VITAMIN B COMP W-C TABLET PO SCH (08:23)
[2017-10-27] MEDS: AMLODIPINE 10MG TABLET PO SCH (08:24)
[2017-10-27] MEDS: SEVELAMER CARBONATE 800 MG TABLET PO SCH ×3 (08:24→17:39)
[2017-10-27] MEDS: METOPROLOL TARTRATE 50MG TABLET PO SCH ×2 (08:24→21:35)
[2017-10-27] MEDS: ASPIRIN 325MG TABLET PO SCH (08:24)
[2017-10-27] MEDS: ENOXAPARIN 30MG/0.3ML SYR SUBCUT SCH (08:25)
[2017-10-27 08:31] LABS: HEMOGLOBIN. 8.9 g/dL (14.0-18.0)
[2017-10-27 08:32] LABS: HEMATOCRIT. 25.6 % (42.0-52.0)
[2017-10-27] MEDS: INSULIN NPH (HUMULIN-N) 100 UNITS/ML 3ML VIAL SUBCUT SCH ×2 (09:14→21:37)
[2017-10-27] MEDS: NITROGLYCERIN 0.4MG/HR PATCH TOP SCH (10:50)
[2017-10-27] MEDS: ATORVASTATIN CALCIUM 10MG TABLET PO SCH (21:34)
[2017-10-28] VITALS (11 sets, daily range): BP systolic 118–170; BP diastolic 62–84
[2017-10-28] MEDS: INSULIN LISPRO 100 UNITS/ML SUBCUT SCH ×3 (06:00→18:00)
[2017-10-28] MEDS: BLOOD SUGAR DIAGNOSTIC STRIP TEST SCH ×3 (06:07→18:00)
[2017-10-28 07:09] LABS: BASOPHILS % 0.8 % (0.0-2.0); EOSINOPHILS % 4.7 % (0.0-5.0); HEMATOCRIT. 25.5 % (42.0-52.0); HEMOGLOBIN. 8.7 g/dL (14.0-18.0); LYMPHOCYTES % 32.1 % (20.0-50.0); MEAN CORPUSCULAR HEMOGLOBIN 31.3 pg (28.0-32.0); MEAN CORPUSCULAR VOLUME 91.3 fL (80.0-94.0); MEAN PLATELET VOLUME 8.9 fl (7.4-10.4); MONOCYTES % 10.4 % (2.0-8.0); PLATELET 201 x1000/uL (130-400); RED BLOOD CELL COUNT 2.79 mill/uL (4.7-6.1); RED CELL DISTRIBUTION WIDTH 14.1 % (11.6-14.6)
[2017-10-28] MEDS: INSULIN NPH (HUMULIN-N) 100 UNITS/ML 3ML VIAL SUBCUT SCH (08:05)
[2017-10-28] MEDS: LANTHANUM CARBONATE 500MG CHEW TABLET PO SCH ×3 (08:22→17:20)
[2017-10-28] MEDS: FAMOTIDINE 20MG TABLET PO SCH (08:22)
[2017-10-28] MEDS: ASPIRIN 325MG TABLET PO SCH (08:22)
[2017-10-28] MEDS: FOLIC ACID/VITAMIN B COMP W-C TABLET PO SCH (08:22)
[2017-10-28] MEDS: SEVELAMER CARBONATE 800 MG TABLET PO SCH ×3 (08:22→17:20)
[2017-10-28] MEDS: NITROGLYCERIN 0.4MG/HR PATCH TOP SCH (08:22)
[2017-10-28] MEDS: ENOXAPARIN 30MG/0.3ML SYR SUBCUT SCH (08:22)
[2017-10-28] MEDS: METOPROLOL TARTRATE 50MG TABLET PO SCH ×2 (09:00→17:05)
[2017-10-28] MEDS: AMLODIPINE 10MG TABLET PO SCH ×2 (09:00→17:05)
[2017-10-28] MEDS ORDERED: VANCOMYCIN 1 G PREMIX 200 ML IV SCH (16:00)
[2017-10-29 13:07] LABS: 25-HYDROXY VITAMIN D3 19 ng/mL (.)
== END 2017-10-28 18:40 | disposition home or self-care (01) | DRG 951 ==
LOC: EDBEDREQ 17:43 → EDBEDREQTM 17:43 → EDBEDREQSVC 17:43 → EDBEDREQTM 17:45 → EDBEDREQSVC 17:52 → EDBEDREQ 17:52 → EDBEDREQTM 17:52 → EDBEDREQ 17:54 → EDBEDREQTM 17:54 → ER 18:02 → ENRESERV 21:58 → CVICU 22:02 → 3WST 10-25 19:40
PROVIDERS: ADMIT Internal Medicine; ATTEND Internal Medicine
PROC: 5A1945Z Respiratory Ventilation, 24-96 Consecutive Hours (ICD-10-PCS; 2017-10-21)
PROC: 0BH17EZ Insertion of Endotracheal Airway into Trachea, Via Natural or Artificial Opening (ICD-10-PCS; 2017-10-21)
PROC: 5A1D70Z Performance of Urinary Filtration, Intermittent, Less than 6 Hours Per Day (ICD-10-PCS; 2017-10-21)
PROC: 05PYX3Z Removal of Infusion Device from Upper Vein, External Approach (ICD-10-PCS; 2017-10-22)
PROC: 02HV33Z Insertion of Infusion Device into Superior Vena Cava, Percutaneous Approach (ICD-10-PCS; 2017-10-22)
PROC: 5A1D70Z Performance of Urinary Filtration, Intermittent, Less than 6 Hours Per Day (ICD-10-PCS; 2017-10-22)
PROC: 0WPG03Z Removal of Infusion Device from Peritoneal Cavity, Open Approach (ICD-10-PCS; principal; 2017-10-23 06:30)
PROC: 5A09357 Assistance with Respiratory Ventilation, Less than 24 Consecutive Hours, Continuous Positive Airway Pressure (ICD-10-PCS; 2017-10-24)
PROC: 5A1D70Z Performance of Urinary Filtration, Intermittent, Less than 6 Hours Per Day (ICD-10-PCS; 2017-10-24)
PROC: 5A09357 Assistance with Respiratory Ventilation, Less than 24 Consecutive Hours, Continuous Positive Airway Pressure (ICD-10-PCS; 2017-10-25)
PROC: 5A09357 Assistance with Respiratory Ventilation, Less than 24 Consecutive Hours, Continuous Positive Airway Pressure (ICD-10-PCS; 2017-10-26)
PROC: 5A09357 Assistance with Respiratory Ventilation, Less than 24 Consecutive Hours, Continuous Positive Airway Pressure (ICD-10-PCS; 2017-10-28)
DX: T85.71XA Infection and inflammatory reaction due to peritoneal dialysis catheter, initial encounter (principal); A41.89 Other specified sepsis; J96.20 Acute and chronic respiratory failure, unspecified whether with hypoxia or hypercapnia; G92 Toxic encephalopathy; I50.33 Acute on chronic diastolic (congestive) heart failure; E10.10 Type 1 diabetes mellitus with ketoacidosis without coma; E87.4 Mixed disorder of acid-base balance; E46 Unspecified protein-calorie malnutrition; N18.6 End stage renal disease; J44.1 Chronic obstructive pulmonary disease with (acute) exacerbation; E87.1 Hypo-osmolality and hyponatremia; D63.8 Anemia in other chronic diseases classified elsewhere; E10.22 Type 1 diabetes mellitus with diabetic chronic kidney disease; G47.33 Obstructive sleep apnea (adult) (pediatric); E10.319 Type 1 diabetes mellitus with unspecified diabetic retinopathy without macular edema; E10.40 Type 1 diabetes mellitus with diabetic neuropathy, unspecified; E21.3 Hyperparathyroidism, unspecified; E87.0 Hyperosmolality and hypernatremia; E83.39 Other disorders of phosphorus metabolism; E78.5 Hyperlipidemia, unspecified; I13.2 Hypertensive heart and chronic kidney disease with heart failure and with stage 5 chronic kidney disease, or end stage renal disease; E10.649 Type 1 diabetes mellitus with hypoglycemia without coma; Y83.8 Other surgical procedures as the cause of abnormal reaction of the patient, or of later complication, without mention of misadventure at the time of the procedure; Y92.89 Other specified places as the place of occurrence of the external cause; Z86.73 Personal history of transient ischemic attack (TIA), and cerebral infarction without residual deficits; Z99.2 Dependence on renal dialysis; Z93.1 Gastrostomy status; Z68.26 Body mass index [BMI] 26.0-26.9, adult; Z79.899 Other long term (current) drug therapy; I25.2 Old myocardial infarction; Z78.1 Physical restraint status
CPT/HCPCS: 36415; 36569; 36600; 51702; 70450; 71045; 76937; 80048; 80053; 80061; 80202; 80305; 81003; 82010; 82270; 82306; 82330; 82375; 82805; 82962; 83036; 83605; 83735; 83970; 84100; 84478; 85025; 87040; 87070; 87075; 87077; 87086; 87186; 87205; 88300; 93005; 93306; 93970; 94002; 94003; 94640; 94660; 96374; 96375; 97162; 97166; 99291; A4216; C1725; G0482; J0330; J0360; J0690; J1100; J1650; J1815; J2250; J2405; J2543; J2704; J3010; J3370; J3490; J7030; J7040; J7050; J7060; J7620